=== PATIENT | female | born 1980 | race Hispanic/Latino ===

== ENCOUNTER 2017-03-10 10:45 | Emergency (ER) | payer OTHER ==
[2017-03-10 10:46] VITALS: BMI 33.7
[2017-03-10 11:02] VITALS: TEMP 98.8
--- NOTE | 2017-03-10 11:40 | ED PDOC ---
Arrival/HPI - General Chief Complaint: Headache Time Seen by Provider: 03/10/17 11:38 Historian: Patient - History of Present Illness Narrative History of Present Illness (Text): 03/10/17 12:03 This 36 yo female presents to this ED c/o dizziness, and FERRERA x 1 day. Patient admits similar symptom is the past. Patient denies trauma, fever, diplopia, dysarthria, weakness, paresthesias, recent travel, or sick contact. Time/Duration: Prior to Arrival Context: Home Past Medical History - Provider Review Nursing Documentation Reviewed: Yes - Infectious Disease Hx of Infectious Diseases: None - Reproductive Menopause: No - Past Medical History Past Medical History: No Previous - Psychiatric Hx Substance Use: No - Surgical History Hx Section: Yes (x3) Other/Comment: IUD - Anesthesia Hx Anesthesia: Yes Hx Anesthesia Reactions: No Hx Malignant Hyperthermia: No - Suicidal Assessment Feels Threatened In Home Enviroment: No Family/Social History - Physician Review Nursing Documentation Reviewed: Yes Family/Social History: No Known Family HX Smoking Status: Never Smoked Hx Alcohol Use: No Hx Substance Use: No Hx Substance Use Treatment: No Allergies/Home Meds Allergies/Adverse Reactions: Allergies No Known Allergies Allergy (Verified 05/26/16 00:59) Review of Systems - Review of Systems Constitutional: Normal. absent: Fatigue, Weight Change, Fevers Eyes: Normal. absent: Vision Changes, Photophobia, Eye Pain ENT: Normal. absent: Sore Throat, Rhinorrhea Respiratory: Normal. absent: SOB, Cough Cardiovascular: Normal. absent: Chest Pain, Palpitations Gastrointestinal: Normal. absent: Abdominal Pain, Nausea, Vomiting Genitourinary Female: Normal. absent: Dysuria, Frequency, Hematuria, Vaginal Bleeding, Vaginal Discharge Musculoskeletal: Normal. absent: Back Pain, Neck Pain Skin: Normal. absent: Rash, Pruritis, Skin Lesions Neurological: Headache, Dizziness. absent: Focal Weakness, Gait Changes, Speech Changes, Facial Droop, Disequilibrium, Seizure Endocrine: Normal Hemo/Lymphatic: Normal Psychiatric: Normal Physical Exam Vital Signs Temp Pulse Resp BP Pulse Ox 03/10/17 12:47 73 18 119/77 100 03/10/17 10:58 98.8 F 68 16 138/84 98 Temperature: Afebrile Blood Pressure: Normal Pulse: Regular Respiratory Rate: Normal Appearance: Positive for: Well-Appearing, Non-Toxic, Comfortable Pain Distress: None Mental Status: Positive for: Alert and Oriented X 3 Finger Stick Blood Glucose: 86 - Systems Exam Head: Present: Atraumatic, Normocephalic Pupils: Present: PERRL Extroacular Muscles: Present: EOMI Conjunctiva: Present: Normal Mouth: Present: Moist Mucous Membranes Neck: Present: Normal Range of Motion Respiratory/Chest: Present: Clear to Auscultation, Good Air Exchange. No: Respiratory Distress, Accessory Muscle Use Cardiovascular: Present: Regular Rate and Rhythm, Normal S1, S2. No: Murmurs Abdomen: Present: Normal Bowel Sounds. No: Tenderness, Distention, Peritoneal Signs Back: Present: Normal Inspection. No: CVA Tenderness Upper Extremity: Present: Normal Inspection, Normal ROM, NORMAL PULSES, Neurovascularly Intact, Capillary Refill < 2s. No: Cyanosis, Edema Lower Extremity: Present: Normal Inspection, NORMAL PULSES, Normal ROM, Neurovascularly Intact, Capillary Refill < 2 s. No: Edema, CALF TENDERNESS Neurological: Present: GCS=15, CN II-XII Intact, Speech Normal, Motor Func Grossly Intact, Normal Sensory Function, Normal Cerebellar Funct, Norm Deep Tendon Reflexes, Gait Normal, Memory Normal Skin: Present: Warm, Dry, Normal Color. No: Rashes Psychiatric: Present: Alert, Oriented x 3, Normal Insight, Normal Concentration Medical Decision Making ED Course and Treatment: 03/10/17 13:39 Re-evaluation. Patient feels better. Discussed results and plan with patient who expresses understanding. All questions answered and there is agreement with the plan to discharge home with instructions. Patient stable for discharge. Return if symptoms persist or worsen. Patient stated she feels well on her normal state of health. Patient has been ambulating and drinking fluids during the ED visit. Patient wishes to bed discharge home, and she stated she will see her PMD tomorrow. Re-evaluation Time: 13:40 Reassessment Condition: Re-examined, Improved - Medication Orders Current Medication Orders: Discontinued Medications Sodium Chloride (Sodium Chloride 0.9%) 1,000 mls @ 999 mls/hr IV .Q1H1M STA Stop: 03/10/17 13:01 Last Admin: 03/10/17 12:31 Dose: 999 mls/hr Ketorolac Tromethamine (Toradol) 15 mg IVP STAT STA Stop: 03/10/17 12:03 Last Admin: 04/25/17 12:34 Dose: 15 mg Meclizine HCl (Antivert) 25 mg PO STAT STA Stop: 03/10/17 12:03 Last Admin: 03/10/17 12:34 Dose: 25 mg Metoclopramide HCl (Reglan) 10 mg IVP STAT STA Stop: 03/10/17 12:03 Last Admin: 03/10/17 12:34 Dose: 10 mg Disposition/Present on Arrival - Present on Arrival Any Indicators Present on Arrival: No History of DVT/PE: No History of Uncontrolled Diabetes: No Urinary Catheter: No History of Decub. Ulcer: No History Surgical Site Infection Following: None - Disposition Have Diagnosis and Disposition been Completed?: Yes Diagnosis: Headache, Dizzinesses Disposition: HOME/ ROUTINE Disposition Time: 13:41 Patient Plan: Discharge Patient Problems: Current Active Problems Problem Status Onset Headache Acute Condition: GOOD Discharge Instructions (ExitCare): General Headache (ED) Additional Instructions: Call Dr. Cook office tomorrow to see doctor in 1-2 days. Take medication as instructed. Return to emergency if symptoms worsen. Prescriptions: Famotidine [Pepcid] 40 mg PO DAILY #20 tablet Meclizine [Meclizine*] 25 mg PO Q6 PRN #20 tab PRN Reason: Dizziness Naproxen 500 mg PO BID PRN #12 tab PRN Reason: Pain, Severe (8-10)
[2017-03-10] MEDS ORDERED: Sodium Chloride 0.9% 1,000 ML IV STA (12:01)
[2017-03-10] MEDS ORDERED: DiphenhydrAMINE 50 mg/ml Inj IVP STA (12:02)
[2017-03-10 12:47] VITALS: BP 119/77; PULSE 73; RESP 18; O2SAT 100
== END 2017-03-10 13:48 | disposition home or self-care (01) ==
LOC: ED 10:45
DX: R51 Headache (principal); R42 Dizziness and giddiness
CPT/HCPCS: 96374; 96375; 99285; J1885; J2765; J7040

== ENCOUNTER 2017-03-13 09:09 | Emergency (ER) | payer OTHER ==
[2017-03-13 09:09] VITALS: BMI 33.7
[2017-03-13 09:31] VITALS: RESP 18
--- NOTE | 2017-03-13 10:13 | ED PDOC ---
Arrival/HPI - General Chief Complaint: Upper Extremity Problem/Injury Time Seen by Provider: 03/13/17 09:50 Historian: Patient - History of Present Illness Narrative History of Present Illness (Text): 03/13/17 10:10 36yr old female presents today with 2 day history of right wrist and hand pain. pt denies trauma or injury. pt states she cant remember what she was doing with the pain developed, but is positive that she didnt fall. pt states that she has 10/10 sharp throbbing pain to wrist and thumb. non radiating. no medications taken for pain at home. no fever/chills. pt denies numbness. c/o pain with rom of wrist and thumb. no other complaints. Past Medical History - Provider Review Nursing Documentation Reviewed: Yes - Travel History Have you recently traveled outside [place] w/in the past 3 mons?: No - Infectious Disease Hx of Infectious Diseases: None - Reproductive Menopause: No - Past Medical History Past Medical History: No Previous - Psychiatric Hx Substance Use: No - Surgical History Hx Section: Yes (x3) Other/Comment: IUD - Anesthesia Hx Anesthesia: Yes Hx Anesthesia Reactions: No Hx Malignant Hyperthermia: No - Suicidal Assessment Feels Threatened In Home Enviroment: No Family/Social History - Physician Review Nursing Documentation Reviewed: Yes Family/Social History: Unknown Family HX Smoking Status: Never Smoked Hx Alcohol Use: No Hx Substance Use: No Hx Substance Use Treatment: No Allergies/Home Meds Allergies/Adverse Reactions: Allergies No Known Allergies Allergy (Verified 05/26/16 00:59) Review of Systems - Review of Systems Constitutional: absent: Fatigue, Fevers Respiratory: absent: SOB, Cough Cardiovascular: absent: Chest Pain, Palpitations Gastrointestinal: absent: Abdominal Pain, Nausea, Vomiting Musculoskeletal: Arthralgias (right wrist and hand pain). absent: Back Pain, Neck Pain Skin: absent: Rash, Pruritis Neurological: absent: Headache, Dizziness Psychiatric: absent: Anxiety, Depression Physical Exam Vital Signs Reviewed: Yes Vital Signs Temp Pulse Resp BP Pulse Ox 03/13/17 11:00 79 18 111/71 97 03/13/17 09:26 99.5 F 84 18 109/73 97 Temperature: Afebrile Blood Pressure: Normal Pulse: Regular Respiratory Rate: Normal Appearance: Positive for: Well-Appearing, Non-Toxic, Comfortable Pain Distress: None Mental Status: Positive for: Alert and Oriented X 3 - Systems Exam Head: Present: Atraumatic Respiratory/Chest: Present: Clear to Auscultation Cardiovascular: Present: Regular Rate and Rhythm Upper Extremity: Present: NORMAL PULSES, Tenderness (right hand: + ttp over volar aspect of thumb, and thenar eminence; + volar wrist tenderness along the distal radius; no edema, no erythema, no ecchymosis. sensation and distal pulses in tact. cap refill <2. ), Neurovascularly Intact, Capillary Refill < 2s. No: Normal ROM, Swelling, Erythema, Deformity Neurological: Present: GCS=15, Speech Normal Skin: Present: Warm, Dry, Normal Color. No: Rashes Psychiatric: Present: Alert, Oriented x 3 Medical Decision Making ED Course and Treatment: 03/13/17 10:14 Patient nontoxic well-appearing in no distress with stable vital signs X-rays of the right hand and wrist; no fracture toradol IM. Patient placed in thumb spica splint pt reassessment; pt feeling better after medications; still c/o slight pain. placed into splint and advised to f/u w/ ortho. pt has appointment with PMD on thursday. no swelling, no signs of infection, no erythema; full rom of wrist with pain; neurovasc intact. I discussed all results with patient advised to followup with the orthopedist for the next 2 days. Return if symptoms worsen persist or new symptoms develop Patient verbalizes understanding of discharge instructions and need for immediate followup. Impression:Hand pain, wrist pain Motrin every 6 hours as needed for pain Rest, ice, compression, elevation Followup with the orthopedist within the next 2 days Followup with primary care physician within the next 2 days Return if any other concerning symptoms develop 03/13/17 11:50 - RAD Interpretation Radiology Orders: 03/13/17 10:00 HAND RIGHT 3 VIEWS [RAD] Stat WRIST, RIGHT 3 VIEWS [RAD] Stat - Medication Orders Current Medication Orders: Discontinued Medications Ketorolac Tromethamine (Toradol) 60 mg IM STAT STA Stop: 03/13/17 10:11 Last Admin: 03/13/17 10:58 Dose: 60 mg Disposition/Present on Arrival - Present on Arrival Any Indicators Present on Arrival: No History of DVT/PE: No History of Uncontrolled Diabetes: No Urinary Catheter: No History of Decub. Ulcer: No History Surgical Site Infection Following: None - Disposition Have Diagnosis and Disposition been Completed?: Yes Diagnosis: Wrist pain, Hand pain Disposition: HOME/ ROUTINE Disposition Time: 10:14 Patient Plan: Discharge Patient Problems: Current Active Problems Problem Status Onset Hand pain Acute Wrist pain Acute Condition: GOOD Discharge Instructions (ExitCare): Arthralgia (ED) Additional Instructions: Motrin every 6 hours as needed for pain Rest, ice, compression, elevation Followup with the orthopedist within the next 2 days Followup with primary care physician within the next 2 days Return if any other concerning symptoms develop Prescriptions: Ibuprofen [Motrin] 600 mg PO Q6H PRN #20 tab PRN Reason: pain/fever reduction Referrals: Giacomo Cook MD [Primary Care Provider] - Follow up with primary Priyank Terry DO [Staff Provider] - Follow up with primary [facility] [Outside] - Follow up with primary [facility] [place] [Outside] - Follow up with primary
[2017-03-13 11:54] VITALS: BP 113/68; PULSE 75; TEMP 98.2; O2SAT 98
--- NOTE | 2017-03-13 12:46 | RAD ---
PROCEDURE: Right Wrist Radiographs. HISTORY: hand/wrist pain COMPARISON: None. FINDINGS: BONES: Normal. No fracture. JOINTS: Normal. No dislocation. SOFT TISSUES: Normal. OTHER FINDINGS: None. IMPRESSION: Normal right wrist radiographs.
--- NOTE | 2017-03-13 12:51 | RAD ---
PROCEDURE: Right Hand Radiographs. HISTORY: hand/wrist pain COMPARISON: None. FINDINGS: BONES: Normal. No fracture. JOINTS: Normal. No osteoarthritic changes. SOFT TISSUES: Normal. OTHER FINDINGS: None. IMPRESSION: Normal right hand radiographs.
== END 2017-03-13 12:40 | disposition home or self-care (01) ==
LOC: ED 09:09
DX: M25.531 Pain in right wrist (principal); M79.641 Pain in right hand
CPT/HCPCS: 29130; 73110; 73130; 96372; 99284; J1885

== ENCOUNTER 2017-05-29 02:32 | Emergency (ER) | payer OTHER ==
[2017-05-29 02:38] VITALS: BMI 32.4
[2017-05-29] MEDS ORDERED: Sodium Chloride 0.9% 1,000 ML IV STA (03:26)
[2017-05-29] MEDS ORDERED: Famotidine 20mg/50ml 20 MG/50 ML BAG IV STA (03:26)
--- NOTE | 2017-05-29 03:35 | ED PDOC ---
Arrival/HPI - General Chief Complaint: GI Problem Time Seen by Provider: 05/29/17 02:36 Historian: Patient - History of Present Illness Narrative History of Present Illness (Text): 05/29/17 03:25 Jennifer Villarreal is a 36 year old female who presents to the Emergency department accompanied by relative complaining of abdominal pain. Patient states, via relative acting as sql manager, she has been experiencing intermittent lower abdominal pain with associated, nausea, vomiting, and diarrhea for 1 day. Patient denies any fever, chills, chest pain, shortness of breath, urinary symptoms, neck pain, headache, dizziness, or any other complaints. Time/Duration: Other (1 days) Symptom Onset: Gradual Symptom Course: Intermittent Activities at Onset: Rest, Light Context: Home Past Medical History - Provider Review Nursing Documentation Reviewed: Yes - Infectious Disease Hx of Infectious Diseases: None - Past Medical History Past Medical History: No Previous - Cardiac Hx Cardiac Disorders: No - Pulmonary Hx Respiratory Disorders: No - Neurological Hx Neurological Disorder: No - HEENT Hx HEENT Disorder: No - Renal Hx Renal Disorder: No - Endocrine/Metabolic Hx Endocrine Disorders: No - Hematological/Oncological Hx Blood Disorders: No - Integumentary Hx Dermatological Disorder: No - Musculoskeletal/Rheumatological Hx Musculoskeletal Disorders: No - Gastrointestinal Hx Gastrointestinal Disorders: No - Genitourinary/Gynecological Hx Genitourinary Disorders: No - Psychiatric Hx Psychophysiologic Disorder: No Hx Substance Use: No - Surgical History Hx Section: Yes (x3) Other/Comment: IUD - Anesthesia Hx Anesthesia: Yes Hx Anesthesia Reactions: No Hx Malignant Hyperthermia: No - Suicidal Assessment Feels Threatened In Home Enviroment: No Family/Social History - Physician Review Nursing Documentation Reviewed: Yes Family/Social History: Unknown Family HX Smoking Status: Never Smoked Hx Alcohol Use: No Hx Substance Use: No Hx Substance Use Treatment: No Allergies/Home Meds Allergies/Adverse Reactions: Allergies No Known Allergies Allergy (Verified 05/26/16 00:59) Review of Systems - Physician Review All systems were reviewed & negative as marked: Yes Physical Exam - Physical Exam Narrative Physical Exam (Text): - Review of Systems Constitutional: Normal. absent: Fatigue, Weight Change, Fevers Eyes: Normal ENT: Normal Respiratory: Normal absent: SOB, Cough, Sputum Cardiovascular: Normal absent: Chest pain, Palpitations, Syncope Gastrointestinal: +abdominal pain, +nausea, +vomiting, +diarrhea Genitourinary: Normal. absent: Dysuria, Frequency, Hematuria Musculoskeletal: Normal. absent: Arthralgias, Back Pain, Neck Pain Skin: Normal Neurological: Normal absent: Focal Weakness Endocrine: Normal Hemo/Lymphatic: Normal Psychiatric: Normal - Physical exam Patient appears age appropriate, speaking full sentences without difficulty - Systems Exam Head: Present: Atraumatic, Normocephalic Pupils: Present: PERRL Extraocular Muscles: Present: EOMI Conjunctiva: Present: Normal Mouth: Present: Moist Mucous Membranes Neck: Present: Normal Range of Motion. No: MIDLINE TENDERNESS, Paraspinal Tenderness Respiratory/Chest: Present: Clear to Auscultation, Good Air Exchange. No: Respiratory Distress, Accessory Muscle Use, Tachypnic Cardiovascular: Present: Regular Rate and Rhythm, Normal S1, S2, Peripheral Pulses Present. No: Murmurs Abdomen: Present: Lower abdominal tenderness to palpation No: Peritoneal Signs , Rebound, Guarding, Distention Back: Present: Normal Inspection. No: Midline Tenderness, Paraspinal Tenderness Upper Extremity: Present: Normal Inspection. No: Cyanosis, Edema Lower Extremity: Present: Normal Inspection. No: Edema Neurological: Present: GCS=15, Speech Normal, cranial nerves II through XII fully intact with no cerebellar abnormality, neuro-sensory fully intact. No focal neurological deficits. Skin: Present: Warm, Dry, Normal Color. No: Rashes Lymphatic: Present: OX3, NI, NC Psychiatric: Present: Alert, Oriented x 3, Normal Insight, Normal Concentration Vital Signs Reviewed: Yes Vital Signs Temp Pulse Resp BP Pulse Ox 05/29/17 02:37 98.1 F 81 17 121/79 100 Temperature: Afebrile Blood Pressure: Normal Pulse: Regular Respiratory Rate: Normal Appearance: Positive for: Well-Appearing, Non-Toxic, Comfortable Pain Distress: None Mental Status: Positive for: Alert and Oriented X 3 Medical Decision Making ED Course and Treatment: 05/29/17 03:25 Impression: 36 year old female complaining of intermittent lower abdominal pain, with nausea , vomiting, and diarrhea. On exam, there is lower abdominal tenderness. Differential Diagnosis included but are not limited to: colitis vs. diverticulitis vs. non-specific abdominal pain Plan: -- CT Abdomen and Pelvis with IV contrast -- Labs, lipase -- Urinalysis -- IV fluids -- Zofran -- Pepcid -- Toradol -- Reassess and disposition Progress Notes: 05/29/17 05:36 CT Abdomen and Pelvis Impression: Dictated and Authenticated by: Narcisa Mariano MD Findings consistent with pancolitis, as detailed above. Hepatomegaly. 05/29/17 06:04 On reevaluation, patient reports that she feels much better and would like to be discharged home. Patient's repeat abdominal exam is soft, nontender, non distended with positive bowel sounds in all 4 quadrants and no peritoneal signs. Patient is tolerating PO without any difficulty. pt instructed to f/u with her PMD (Dr. Arturo Cook) for GI f/u Pt states she understands to return to the ER right away for new or worsening symptoms or for inability to f/u with PMD or specialist as instructed. Patient states that she fully agrees with and understands discharge instructions. States that she agrees with the plan and disposition. Verbalized and repeated discharge instructions and plan. I have given the patient opportunity to ask any additional questions. - Lab Interpretations Lab Results: 05/29/17 04:00 05/29/17 04:00 Lab Results 05/29/17 04:30: Urine Color Yellow, Urine Appearance Sl cloudy, Urine pH 6.0, Ur Specific [place] 1.025, Urine Protein 30 H, Urine Glucose (UA) Negative, Urine Ketones Trace H, Urine Blood Large H, Urine Nitrate Negative, Urine Bilirubin Negative, Urine Urobilinogen 0.2, Ur Leukocyte Esterase Negative, Urine RBC 10 - 15, Urine WBC 0 - 2, Ur Epithelial Cells 0 - 2 05/29/17 04:00: Sodium 139, Potassium 3.8, Chloride 105, Carbon Dioxide 24, Anion Gap 14, BUN 20, Creatinine 0.9, Est GFR ( Amer) > 60, Est GFR (Non- Af Amer) > 60, Random Glucose 107, Calcium 8.9, Total Bilirubin 0.5, AST 31, ALT 37, Alkaline Phosphatase 54, Total Protein 7.5, Albumin 4.4, Globulin 3.1, Albumin/Globulin Ratio 1.4, Lipase 86 05/29/17 04:00: PT 10.7, INR 0.99, APTT 25.9 05/29/17 04:00: WBC 9.7 D, RBC 5.00, Hgb 12.6, Hct 38.7, MCV 77.4 L, MCH 25.2, MCHC 32.6, RDW 13.5, Plt Count 211, MPV 10.7, Gran % 70.8 H, Lymph % (Auto) 20.3 L, [place] % (Auto) 8.0 H, Eos % (Auto) 0.7 L, Baso % (Auto) 0.2, Gran # 6.88 H, Lymph # 2.0, [place] # 0.8 H, Eos # 0.1, Baso # 0.02 I have reviewed the lab results: Yes - RAD Interpretation Radiology Orders: 05/29/17 03:26 ABD & PELVIS IV CONTRAST ONLY [CT] Stat Risk Control Specialist: Radiologist - Medication Orders Current Medication Orders: Discontinued Medications Famotidine (Pepcid 20mg/50ml Premix) 20 mg in 50 mls @ 100 mls/hr IV STAT STA Stop: 05/29/17 03:55 Last Admin: 05/29/17 03:53 Dose: 100 mls/hr Sodium Chloride (Sodium Chloride 0.9%) 1,000 mls @ 1,000 mls/hr IV .Q1H STA Stop: 05/29/17 04:25 Last Admin: 05/29/17 03:53 Dose: 1,000 mls/hr Iohexol (Omnipaque 350 100 Ml) Confirm Administered Dose 350 mg .ROUTE .STK-MED ONE Stop: 05/29/17 04:47 Ketorolac Tromethamine (Toradol) 15 mg IVP STAT STA Stop: 05/29/17 03:27 Last Admin: 05/29/17 03:53 Dose: 15 mg Ondansetron HCl (Zofran Inj) 4 mg IVP STAT STA Stop: 05/29/17 03:27 Last Admin: 05/29/17 03:53 Dose: 4 mg - Scribe Statement The provider has reviewed the documentation as recorded by the Sandi Garcia Provider Elenaibe Attestation: All medical record entries made by the Scribsimone were at my direction and personally dictated by me. I have reviewed the chart and agree that the record accurately reflects my personal performance of the history, physical exam, medical decision making, and the department course for this patient. I have also personally directed, reviewed, and agree with the discharge instructions and disposition. Disposition/Present on Arrival - Present on Arrival Any Indicators Present on Arrival: No History of DVT/PE: No History of Uncontrolled Diabetes: No Urinary Catheter: No History of Decub. Ulcer: No History Surgical Site Infection Following: None - Disposition Have Diagnosis and Disposition been Completed?: Yes Diagnosis: Colitis Disposition: HOME/ ROUTINE Disposition Time: 06:07 Patient Plan: Discharge Condition: GOOD Discharge Instructions (ExitCare): Colitis (ED) Additional Instructions: PLEASE RETURN TO THE EMERGENCY DEPARTMENT FOR NEW OR WORSENING SYMPTOMS. RETURN RIGHT AWAY IF YOU CANNOT FOLLOW UP WITH YOUR PRIMARY CARE DOCTOR, CLINIC, OR SPECIALIST IN 1-2 DAYS. Prescriptions: Ciprofloxacin [Cipro] 500 mg PO Q12 #14 tab Metronidazole [Flagyl] 500 mg PO TID #21 tab Referrals: Jone Pope MD [Staff Provider] - Follow up with primary
[2017-05-29 03:56] VITALS: BP 121/79; PULSE 81; RESP 17; TEMP 98.1; O2SAT 100
[2017-05-29 04:10] LABS: BASO # 0.02 K/mm3 (0.0-2.0); BASO % 0.2 % (0.0-3.0); EOS # 0.1 (0.0-0.7); EOS % 0.7 % (1.5-5.0); GRAN # 6.88 (1.4-6.5); GRAN % 70.8 % (50.0-68.0); HEMOGLOBIN 12.6 gm/dL (12.0-16.0); LYMPH % 20.3 % (22.0-35.0); MEAN CELL VOLUME 77.4 fL (80.0-105.0); MEAN CORPUSCULAR HEMOGLOBIN 25.2 pg (25.0-35.0); MEAN CORPUSCULAR HGB CONC 32.6 g/dl (31.0-37.0); MEAN PLATELET VOLUME 10.7 fl (7.0-11.0); MONO # 0.8 (0.1-0.6); PLATELET COUNT 211 10^3/uL (120.0-450.0); RED CELL DISTRIBUTION WIDTH 13.5 % (11.5-14.5); WHITE BLOOD COUNT 9.7 10^3/ul (4.5-11.0)
[2017-05-29 04:22] LABS: ALB/GLOB RATIO 1.4 (1.1-1.8); ALBUMIN 4.4 g/dL (3.0-4.8); ALT/SGPT 37 U/L (7-56); AST/SGOT 31 U/L (15-39); BLOOD UREA NITROGEN 20 mg/dL (7-21); CALCIUM 8.9 mg/dL (8.4-10.5); GFR AFRICAN-AMERICAN > 60; GFR NON-AFRICAN AMERICAN > 60; INR 0.99 (0.93-1.08); LIPASE 86 U/L (23-300); PARTIAL THROMBOPLASTIN TIME 25.9 Seconds (23.7-30.8); PROTHROMBIN TIME 10.7 Seconds (9.9-11.8)
[2017-05-29] MEDS ORDERED: Iohexol 350 MG/100 ML VIAL ONE (04:46)
[2017-05-29 05:18] LABS: URINE BILIRUBIN NEGATIVE (NEGATIVE); URINE BLOOD LARGE (NEGATIVE); URINE GLUCOSE (UA) NEGATIVE (NEGATIVE); URINE LEUKOCYTE ESTERASE NEGATIVE Leu/uL (NEGATIVE); URINE NITRATE NEGATIVE (NEGATIVE); URINE PROTEIN 30 mg/dL (<30 mg/dL); URINE UROBILINOGEN 0.2 E.U./dL (<1 E.U./dL)
[2017-05-29 05:32] LABS: URINE COLOR YELLOW (YELLOW)
[2017-05-29 05:33] LABS: URINE APPEARANCE SL CLOUDY (CLEAR)
[2017-05-29 05:34] LABS: URINE WBC 0 - 2 /hpf (0-6)
[2017-05-29 05:35] LABS: URINE EPITHELIAL CELLS 0 - 2 /hpf (0-5)
--- NOTE | 2017-05-29 05:35 | CT ---
EXAM: CT Abdomen and Pelvis With Intravenous Contrast CLINICAL HISTORY: 36 years old, female; Pain; Abdominal pain; Additional info: Abd pain TECHNIQUE: Axial computed tomography images of the abdomen and pelvis with intravenous contrast. This CT exam was performed using one or more of the following dose reduction techniques: automated exposure control, adjustment of the mA and/or kV according to patient size, and/or use of iterative reconstruction technique. Coronal and sagittal reformatted images were created and reviewed. CONTRAST: 96 mL of OMNI 350 administered intravenously. COMPARISON: No relevant prior studies available. FINDINGS: Lower thorax: Trace dependent atelectasis. ABDOMEN: Liver: The liver is enlarged. Measuring 21 cm in longitudinal dimension. Gallbladder and bile ducts: The gallbladder is decompressed, without calcified stones. No significant intra- or extrahepatic biliary ductal dilation. Pancreas: Enhances homogeneously. No ductal dilation. No discrete mass. Spleen: No acute findings. Adrenals: No acute findings. Kidneys and ureters: No acute findings. No hydronephrosis or renal calculi. No discrete solid mass. PELVIS: Bladder: No acute findings. Reproductive: An IUD is identified, in good position. Appendix: The air filled appendix is of normal caliber (series 2, image 136; series 601, image 53) . ABDOMEN and PELVIS: Stomach and bowel: Edematous mural thickening is identified throughout the colon, with adjacent inflammatory change, findings consistent with pancolitis. No drainable fluid collection or perforation is identified. Peritoneum: No significant fluid collection. No free air. Lymph nodes: No pathologically enlarged lymph nodes. Vasculature: Unremarkable. Bones: No acute fracture. IMPRESSION: Findings consistent with pancolitis, as detailed above. Hepatomegaly.
== END 2017-05-29 06:15 | disposition home or self-care (01) ==
LOC: ED 02:32
DX: K52.9 Noninfective gastroenteritis and colitis, unspecified (principal)
CPT/HCPCS: 74177; 80053; 81001; 83690; 85025; 85610; 85730; 96374; 99284; J1885; J2405; J7040; Q9967